=== PATIENT | male | born 1995 | race Two or more races ===

== ENCOUNTER 2018-04-20 09:06 | Emergency (ER) | payer SELFPAY ==
[2018-04-20 09:12] VITALS: BP 126/65
[2018-04-20] MEDS ORDERED: IBUPROFEN 800 MG TABLET PO ONE (10:38)
[2018-04-20] MEDS ORDERED: HYDROCODONE/ACETAMINOPHEN 5-325 MG TABLET PO ONE (10:38)
[2018-04-20] MEDS ORDERED: CIPROFLOXACIN HCL 500 MG TABLET PO ONE (10:38)
--- NOTE | 2018-04-20 10:42 | ER Document Report ---
HPI - HPI Patient complains to provider of: knee pain Onset: Yesterday Onset/Duration: Gradual, Persistent Quality of pain: Achy Pain Level: 3 Context: Patient presents complaining of right knee pain. Patient states that knee started out pruritic and then gradually became painful. Patient denies any known injury. Patient complains of pain with movement. Associated Symptoms: Other - r knee. denies: Fever, Vomiting Exacerbated by: Movement Relieved by: Denies Similar symptoms previously: No Recently seen / treated by doctor: No - ROS ROS below otherwise negative: Yes Systems Reviewed and Negative: Yes All other systems reviewed and negative - CONSTITUTIONAL Constitutional: DENIES: Fever, Chills - MUSCULOSKELETAL Musculoskeletal: REPORTS: Extremity pain - R knee, Swelling - DERM Skin Color: Erythema Skin Problems: None Past Medical History - General Information source: Patient - Social History Smoking Status: Former Smoker Chew tobacco use (# tins/day): No Frequency of alcohol use: None Drug Abuse: None Occupation: painting Lives with: Family Family History: Reviewed & Not Pertinent Patient has suicidal ideation: No Patient has homicidal ideation: No - Medical History Medical History: Negative Renal/ Medical History: Denies: Hx Peritoneal Dialysis Surgical Hx: Negative Vertical Provider Document - CONSTITUTIONAL Agree With Documented VS: Yes Exam Limitations: No Limitations General Appearance: WD/WN, No Apparent Distress - INFECTION CONTROL TRAVEL OUTSIDE OF THE [place] IN LAST 30 DAYS: No - HEENT HEENT: Atraumatic, Normocephalic - NECK Neck: Normal Inspection, Supple - RESPIRATORY Respiratory: Breath Sounds Normal, No Respiratory Distress - CARDIOVASCULAR Cardiovascular: Regular Rate, Regular Rhythm - MUSCULOSKELETAL/EXTREMETIES Musculoskeletal/Extremeties: MAEW, FROM, Tender - Right knee tenderness to superior medial compartment with 1+ edema and overlying erythema, no joint effusion - NEURO Level of Consciousness: Awake, Alert, Appropriate Motor/Sensory: No Motor Deficit - DERM Integumentary: Warm, Dry, No Rash Course - Re-evaluation Re-evalutation: 04/20/18 10:38 dr Woodward to bedside for examination, advises placing patient on Cipro and agrees with plan to have patient return in 2 days for recheck or sooner for any worsening symptoms. Patient afebrile, with good range of motion no concern for septic arthritis, suspect likely cellulitis at this time possibly initiated by insect bite given the onset of symptoms originated with pruritus. 04/20/18 16:10 - Vital Signs Vital signs: Temp Pulse Resp BP Pulse Ox 98.6 F 66 14 126/65 H 98 04/20/18 09:11 04/20/18 09:11 04/20/18 09:11 04/20/18 09:11 04/20/18 09:11 Discharge - Discharge Clinical Impression: Cellulitis Qualifiers: Site of cellulitis: extremity Site of cellulitis of extremity: lower extremity Laterality: right Qualified Code(s): L03.115 - Cellulitis of right lower limb Condition: Stable Disposition: HOME, SELF-CARE Instructions: Cellulitis ([facility]), Ciprofloxacin ([facility]), Use of Crutches ([facility]), Oral Narcotic Medication ([facility]) Additional Instructions: Return immediately for any new or worsening symptoms Followup with your primary care provider, call tomorrow to make a followup appointment Return in 2 days for a wound recheck. Return immediately for any worsening symptoms including increased pain, increased redness, increased swelling or fever. Prescriptions: Ciprofloxacin HCl [Cipro 500 mg Tablet] 500 mg PO BID #20 tablet Hydrocodone/Acetaminophen [Mikana 5-325 Tablet] 1 each PO Q4 PRN #15 tablet PRN Reason: Naproxen [Naprosyn 250 Nmg Tablet] 1 tab PO BID #14 tablet Forms: Return to Work Referrals: [facility] ([facility]) [Provider Group] - Follow up as needed Print Language: Qatari
== END 2018-04-20 10:51 | disposition home or self-care (01) ==
LOC: ER 09:06
DX: L03.115 Cellulitis of right lower limb (principal); M25.561 Pain in right knee; Z87.891 Personal history of nicotine dependence
CPT/HCPCS: 99283